=== PATIENT | female | born 1950 | race Caucasian/White ===

== ENCOUNTER 2016-11-20 12:55 | Day surgery (SDC) | payer MEDICARE ==
--- NOTE | 2016-11-19 16:39 | PCM.HPANE ---
Patient Data Surgeon Admitting Provider: Attending Provider:Dean Babin MD Primary Care Physician:Shara Finch Other Provider: Reason for Visit Polyp Of Colon Ht/WT & BMI Body Mass Index Allergies Coded Allergies: lisinopril (Verified Allergy, Mild, 11/20/16) COUGH sulfanilamide (Verified Adverse Reaction, Intermediate, Nausea, 11/20/16) Past Anesthesia History Anesthesia History: Denies:: Abnormal Airway, Anesthesia Reactions, Difficult Intubation, Fam Anesthesia Reaction, Fam Malignant Hypertherm, Malignant Hyperthermia Diabetes History Hx Diabetes?: No MRSA MRSA: No Medications Blood Thinner: Aspirin Active Scripts Albuterol HFA (Proair HFA)8.5 Gm Hfa.aer.ad2 Puffs IH Q4 PRN For Wheezing #1 INHALER Prov:Rafat Zelaya 12/17/13 Reported Medications Psyllium Husk (Metamucil)0.4 Gram Capsule0.4 Gm PO DAILY 11/20/16 Folic Acid 0.4 Mg Tablet0.4 Mg PO DAILY 11/20/16 Calcium Carbonate/Vitamin D3 (Calcium 500 + Vit D 200 Tablet)1 Each Tablet1 Each PO DAILY 11/20/16 Tiotropium [place] (Spiriva)18 Mcg Cap.w.dev18 Mcg IH DAILY #1 PKG Ref 0 11/15/16 Omeprazole Magnesium (Prilosec Otc)20 Mg Tablet.dr20 Mg PO BID #1 PKG Ref 0 11/15/16 Aspirin 81 Mg Bqnnvv42 Mg PO DAILY Ref 0 04/29/16 Citalopram 20 Mg Dobnpo63 Mg PO DAILY Ref 0 03/29/16 Bupropion ER (Wellbutrin SR)200 Mg Tablet.er200 Mg PO BID 30 Days Ref 0 12/07/13 Cholecalciferol (Vitamin D3) (Vitamin D)1,000 Unit Tablet4,000 Unit PO DAILY #1 BOTTLE Ref 0 12/07/13 Tramadol 50 Mg Iswjdp82 Mg PO Q6 PRN For Pain Ref 0 12/07/13 Potassium Chloride 10 Meq Tab.er.prt10 Meq PO DAILY 30 Days Ref 0 TAKE WITH FOOD 12/07/13 Lovastatin 10 Mg Vrguhv45 Mg PO HS #30 TABLET Ref 0 12/07/13 Losartan Potassium 50 Mg Kdcvhc11 Mg PO DAILY 12/07/13 Furosemide (Lasix)40 Mg Bjpwrf50 Mg PO DAILY 30 Days Ref 0 12/07/13 Atenolol 50 Mg Ldpbcw17 Mg PO DAILY #30 TABLET Ref 0 12/07/13 Amlodipine 10 Mg Ilxblp60 Mg PO DAILY 30 Days Ref 0 12/07/13 Discontinued Reported Medications Methocarbamol 750 Mg Miuyzu810-0,500 Mg PO Q8 PRN For Spasm Ref 0 12/07/13 Meloxicam 7.5 Mg Tablet7.5 Mg PO DAILY 30 Days Ref 0 12/07/13 Omeprazole 40 Mg Capsule.dr40 Mg PO BID Ref 0 04/29/16 History History of ENT Problems?: No HEENT History: Positive for:: Hearing Problem ([place] - RIGHT SIDE) Denies:: Abnormal Airway Difficult Intubation Denture Type: None Teeth Condition: Broken Teeth Tooth Decay Inflamed Gums Missing Teeth Hx of Heart Problems?: Yes Cardiovascular History: Positive for:: Hypertension Denies:: Cardiac Surgery Chest Pain Congestive Heart Failure Edema Heart Murmur Irregular Heartbeat Pacemaker Thrombophlebitis Hx of Respiratory Problem?: Yes Respiratory History: Positive for:: COPD (uses O2 at 4L) Dyspnea Pneumonia Denies:: Asthma Chest Surgery Emphysema Hemoptysis Tuberculosis Hx Neurologic Problems?: No Neurological History: Positive for:: CVA (UNDER LEFT ARM AND FACE - 2009) Hx of GI Problems?: Yes Hx of Problems?: No Female Hx: Denies:: Currently Endometriosis Pelvic Inflammatory Problems with Breasts? Hx Musculoskeletal Problems?: No Hx of Psycho/Social Problems?: Yes Psycho Social History: Positive for:: Hx Depression Denies:: Anxiety Bipolar Disorder Suicide Attempt Hx Surgeries?: Yes (hysterectomy, tonsils, EAR SURGERY) Hx Any Other Health Problems?: Yes Other History: Positive for:: Hospitalization Denies:: Cancer Endocrine Disease Thyroid Disease History Blood Transfusions: Denies:: Blood Transfuse Reaction Blood Transfusions Hx Diabetes: No Hx Alcohol Use: Yes ("moderate")Hx Substance Use: No Smoking Status: Former Smoker Have You Smoked inLast 12 mo: No Stop/Bang Risk Assessment Category Category 1A: Patient has history of documented sleep apnea, and HAS NOT received any narcotic, sedative or anesthesia administration during this stay. Category 1B: Patient has history of documented sleep apnea, and HAS received any narcotic , sedative or anesthesia administration during this stay Category 2: Patient has SUSPECTED Obstructive Sleep Apnea, and HAS received any narcotic , sedative or anesthesia administration during this stay. Category 3: Patient has SUSPECTED Obstructive Sleep Apnea and HAS NOT received narcotic, sedative or anesthesia administration during this stay. Category 4: Outpatient in Procedural Areas with known sleep apnea or who screen positive for High Risk via the STOP/BANG questionnaire. Exam Exam General Appearance: Alert, Oriented X3, Cooperative, No Acute Distress HEENT/AIRWAY: MP 3, Neck Movement, Mouth Opening (small. missing teeth) Lungs: Normal Air Movement Heart: Exam Unremarkable Plan Impression Patient chart reviewed, patient interviewed and anesthestic plan with risks, benefits, and alternatives discussed, and informed consent obtained. ASA Physical Status: ASA3 Severe Disease Anesthetic Plan: GA Bene/Risks/Altern/Consents: Yes HP Complete Prior to Induction: Yes Hood Guajardo MD November 19, 2016 16:39
[~2016-11-20] VITALS: Ht 149.9 cm; Wt 107.0 kg
[~2016-11-20 12:55] MED LIST: 0.9% Sodium Chloride 1,000 ML IV SCH; ALBU8.5H2 IH; AMLO10TA3 PO; ASPI-973 PO; ATEN50TA PO; BUPR200T2 PO; CHOL100043 PO; CITA20TA11 PO; FURO-128 PO; LOSA50TA37 PO; LOVA10TA PO; MELO-259 PO; METH750T3 PO; OMEP20TA24 PO; POTA10TA38 PO; Sodium Chloride LOK Flush 10 mL Syringe IV PRN; TIOT18CA3 IH; TRAM50TA2 PO; fentaNYL-PF 50 mCg/mL 2 mL Inj IVPUSH PRN
[2016-11-20] MEDS ORDERED: Propofol 10,000 mCg/mL 20 mL Inj ONE (12:56)
[2016-11-20] MEDS ORDERED: fentaNYL-PF 50 mCg/mL 2 mL Inj ONE (12:56)
[2016-11-20] MEDS ORDERED: PSYL0.4C2 PO (13:08)
[2016-11-20] MEDS ORDERED: FOLI0.4T2 PO (13:08)
[2016-11-20] MEDS ORDERED: CALC-72 PO (13:08)
[2016-11-20 13:16] VITALS: BP 129/69; PULSE 85; RESP 16; O2SAT 93
[2016-11-20] MEDS ORDERED: Lactated Ringer's 1,000 ML IV SCH (13:59)
[2016-11-20] MEDS ORDERED: Ondansetron 2 mg/mL 2 mL Inj IVPUSH PRN (14:00)
[2016-11-20 14:46] VITALS: BP 128/63; PULSE 82; RESP 14; O2SAT 94
[2016-11-20 15:03] VITALS: BP 122/63; PULSE 76; RESP 16
--- NOTE | 2016-11-20 15:34 | ENDO ---
[address] [address] ENDOSCOPY PROCEDURE PATIENT: HOLLY BECERRA : 1950 MR#: [id number] ADMIT: 11/20/2016 JOB ID: [id number] DATE: 11/20/2016 PRIMARY PROVIDER: Shara Finch PROCEDURE: Colonoscopy with hot snare polypectomy. INDICATIONS: A 65-year-old female with a personal history of adenomatous colon polyps returning for early surveillance. EQUIPMENT: PCF H 180 AL. SEDATION: Monitored anesthesia as provided by Dr. Dakota Guajardo. COMPLICATIONS: None identified. BOWEL PREPARATION: Fair, adequate examination. PROCEDURAL INFORMATION: After the risks and benefits were explained, written and verbal informed consent was obtained. The patient was brought into the endoscopy suite and placed into the left lateral decubitus position. Sedation was achieved using the above-stated medications with the addition of oxygen via nasal cannula. A digital rectal examination was accomplished. No significant pathology was identified. The scope was introduced into the rectum and advanced to the cecum as identified by the appendiceal orifice and ileocecal valve. The scope was slowly withdrawn to carefully examine the mucosa for any defects or lesions. Multiple direct views were made through the dentate line for exclusion of pathology. X-ray retroflexed views were accomplished in the rectum. The colon was decompressed. The scope removed from the patient who tolerated the procedure well. FINDINGS: In the cecum and around the ileocecal valve, I did not see any residual polypoid mucosa. We identified the tattoo in the hepatic flexure and again did not see any evidence of recurrent polyp. Multiple photographs were taken and we compared to the photographs from previous examination in April. There was a diminutive perhaps 5-6 mm sessile polyp in the transverse removed with hot snare. Moderate diverticulosis was again seen in the left colon. No other pathology throughout including retroflexed views. ENDOSCOPIC DIAGNOSES: 1. Small colon polyp. 2. Diverticulosis. 3. Hemorrhoids. 4. No persisting right colon polyps identified. RECOMMENDATIONS: 1. Await histopathology. 2. Repeat colonoscopy in three years with anesthesia.
--- NOTE | 2016-11-20 15:52 | PCM.ANEP1 ---
Post Anesthesia PACU Phase 1 Assessment Vital Signs Vital Signs Date Time Temp Pulse Resp B/P Pulse Ox O2 Delivery O2 Flow Rate FiO2 11/20/16 15:03 76 16 122/63 Room Air 11/20/16 14:46 82 14 128/63 94 Nasal Cannula 4 11/20/16 13:16 85 16 129/69 93 Nasal Cannula 4 Anesthetic Administered: GA Level of Alertness: Awake, talking SHELLEY's with Equal Strength: Yes Pain: No Nausea or Vomiting: No CV Function & Hydration Stable: Yes Airway Device: Oxygen Delivery: Room Air Lungs: Normal Air Movement PACU Phase 2 Assessment Complications: No Follow up Care: No Patient Instructions Provided: N/A Hood Guajardo MD November 20, 2016 15:52
--- NOTE | 2016-11-22 14:14 | PATH ---
SURGICAL PATHOLOGY Attending Physician:Ely Reynoso CASE STATUS: Signed Out PATIENT NAME: HOLLY BECERRA PID: [id number] : 1950 DATE COLLECTED:11/20/2016 00:00 SPECIMEN: Colon, Biopsy CLINICAL HISTORY: 1. TRANSVERSE COLON POLYP FINAL DIAGNOSIS: 1.TRANSVERSE COLON POLYP: TUBULAR ADENOMA. ICD10 D12.3 GROSS DESCRIPTION: The specimen is received in one formalin filled container labeled with the patient's name, sublabeled "transverse colon polyp" and consists of a 0.3 x 0.3 x 0.2 CM portion of tissue which is entirely submitted in one cassette. 11/21/2016 DAC MICRO DESCRIPTION: See diagnosis. ICD-9 CODES: CPT CODES: 1: 59788 Electronically Signed Out Dean Rosenberg MD [facility] Pathology [facility] [address] [facility], [place] [address] Technical component performed at [facility], [address] [place] [address] Ave[address], [address]
== END 2016-11-20 23:59 | disposition home or self-care (01) ==
LOC: END 12:55
PROVIDERS: ATTEND Internal Medicine Gastroenterology
DX: Z12.11 Encounter for screening for malignant neoplasm of colon (principal); D12.3 Benign neoplasm of transverse colon; K57.30 Diverticulosis of large intestine without perforation or abscess without bleeding; K64.8 Other hemorrhoids; Z86.010 Personal history of colon polyps; J44.9 Chronic obstructive pulmonary disease, unspecified; Z99.81 Dependence on supplemental oxygen; F32.9 Major depressive disorder, single episode, unspecified; I73.00 Raynaud's syndrome without gangrene; E78.5 Hyperlipidemia, unspecified; K21.9 Gastro-esophageal reflux disease without esophagitis; G47.33 Obstructive sleep apnea (adult) (pediatric); I10 Essential (primary) hypertension; Z87.891 Personal history of nicotine dependence; Z79.51 Long term (current) use of inhaled steroids; Z79.82 Long term (current) use of aspirin
CPT/HCPCS: 45385; J3010; J7120